=== PATIENT | male | born 1950 | race Caucasian/White ===

== ENCOUNTER 2017-08-18 09:10 | Day surgery (SDC) | payer OTHER ==
[~2017-08-18] VITALS: Ht 185.4 cm; Wt 106.6 kg
[~2017-08-18 09:10] MED LIST: MULTIVITAMINS1 EAC8 PO
--- NOTE | 2017-08-18 11:29 | NUR ---
08/18/17 1129 Pooja Macedo 1120-PATIENT ARRIVED TO PACU ON 6L MASK O2 SAT 95% PATIENT NONAROUSABLE RN HOLDING AIRWAY. RIGHT HAND DRESSING CDI. ICE APPLIED, SR HR [id number] 1125-PATIENT AROUSING TO VERBAL STIMULI OPENING EYES SHALLOW BREATHING ENCOURAGED TO TAKE DEEP BREATHES. DENIES PAIN OR NAUSEA.
[2017-08-18] MEDS ORDERED: ULTRAM50 MG PO (12:03)
--- NOTE | 2017-08-18 12:48 | OR ---
[facility] [address], [place] [address] Signed DATE OF OPERATION: 08/18/2017 SURGEON: Real Ann MD PREOPERATIVE DIAGNOSIS: Dupuytren's disease, right palm ring finger. POSTOPERATIVE DIAGNOSIS: Dupuytren's disease, right palm ring finger. PROCEDURE: Partial palmar fasciectomy. ANESTHESIA: [place] block with general. SPECIMENS AND COMPLICATIONS: There were no specimens or complications. TOURNIQUET TIME: Tourniquet time was about 59 minutes. WHAT WAS DONE: The patient was taken to the operating room. After [place] block was administered, the right upper extremity was positioned, and prepped and draped in a routine sterile fashion. A longitudinal incision was made over the palpable cord and nodules along the 4th ray from the PIP flexion crease proximally across the proximal MCP flexion crease. The skin was divided sharply and then under loupe magnification, we used a small skin hook to elevate the skin and we gently elevated the skin off the palmar fascia. We then used a pair of tenotomy scissors to carry the dissection a little deeper medially and laterally around the cord, so we could identify the neurovascular bundles. We then released the cord proximally and then elevated off the flexor tendon sheath and off the neurovascular bundles proceeding distally. Distally, we shelled it out again from the surrounding tissue paying careful attention to the neurovascular structures. Hemostasis was then achieved with electrocautery. The longitudinal incision was then converted to multiple Z-plasty and closed with 5-0 nylon. A sterile dressing was applied. He was awakened and taken to the recovery room where he arrived in stable condition. Counts were correct and antibiotic protocols were followed. Electronically Signed By: REAL ANN MD 08/18/17 1248 PATIENT NAME: SHALOM HAIRSTON OPERATIVE REPORT DATE OF : 50 REPORT #: [id number] PHYSICIAN: REAL ANN MD PCP: LAUREL ERWIN MD REPORT IS CONFIDENTIAL AND NOT TO BE RELEASED WITHOUT AUTHORIZATION [address] [address] Signed Real Ann MD WFB/MODL /[id number] Copies: ~ Electronically Signed By: REAL ANN MD 08/18/17 1248 PATIENT NAME: SHALOM HAIRSTON OPERATIVE REPORT DATE OF : 50 REPORT #: [id number] PHYSICIAN: REAL ANN MD PCP: LAUREL ERWIN MD REPORT IS CONFIDENTIAL AND NOT TO BE RELEASED WITHOUT AUTHORIZATION
== END 2017-08-18 12:40 | disposition home or self-care (01) ==
LOC: DS 09:10 → OPS 09:10 → DS 09:30 → OPS 12:40
PROVIDERS: Orthopaedic Surgery
PROC: 0JNJ0ZZ Release Right Hand Subcutaneous Tissue and Fascia, Open Approach (ICD-10-PCS; principal; 2017-08-18 09:30)
DX: M72.0 Palmar fascial fibromatosis [Dupuytren] (principal); J30.2 Other seasonal allergic rhinitis
CPT/HCPCS: 01810; J0690; J1885; J2250; J2704; J3010; J7120

== ENCOUNTER 2018-01-25 15:27 | Emergency (ER) | payer OTHER ==
[~2018-01-25] VITALS: Ht 185.4 cm; Wt 106.6 kg
--- OUTSIDE RECORDS SUMMARY | ~2018-01-25 | XMS | Clinical Summary ---
Demographics + + + | Address | [address] | | | [place] [address] | + + + | Home Phone | | + + + | Preferred Language | Unknown | + + + | Marital Status | | + + + | Moravian Affiliation | 1027 | + + + | Race | Unknown | + + + | Ethnic Group | Unknown | + + + Author + + + | Author | [facility] | | | and [place] | + + + | Organization | [facility] | | | and [place] | + + + | Address | Unknown | + + + | Phone | Unavailable | + + + Support + + +---------+ + | Name | Relationship | Address | Phone | + + +---------+ + | HELEN CHRISTIANSON/INDIRA | ECON | Unknown | Unavailable | + + +---------+ + Care Team Providers + +------+ + | Care Diamond Selector Name | Role | Phone | + +------+ + PP | Unavailable | + +------+ + Allergies Not on File Current Medications Not on file Active Problems Not on file Social History + +-------+ +--------+------+ | Tobacco Use | Types | Packs/Day | Years | Date | | | | | Used | | + +-------+ +--------+------+ | Never Assessed | | | | | + +-------+ +--------+------+ + + + | Sex Assigned at | Date Recorded | | | | + + + | Not on file | | + + + Plan of Treatment + + + + + | Health Maintenance | Due Date | Last Done | Comments | + + + + + | Vaccine: | | | | | Dtap/Tdap/Td (1 - | 0 | | | | Tdap) | | | | + + + + + | Vaccine: Zoster (1 | | | | | of 2) | 1 | | | + + + + + | Vaccine: | | | | | Pneumococcal 65+ | 6 | | | | Low/Medium Risk (1 | | | | | of 2 - PCV13) | | | | + + + + + | Vaccine: Influenza | | | | | (#1) | 8 | | | + + + + + Results Not on filefrom Last 3 Months"
--- OUTSIDE RECORDS SUMMARY | ~2018-01-25 | XMS | Clinical Summary ---
Demographics + + + | Address | [address] | | | [place] [address] | + + + | Home Phone | | + + + | Preferred Language | Unknown | + + + | Marital Status | | + + + | Evangelical Affiliation | 1027 | + + + | Race | Unknown | + + + | Ethnic Group | Unknown | + + + Author + + + | Author | [facility] | | | and [place] | + + + | Organization | [facility] | | | and [place] | [...] Team Providers + +------+ + | Care Rattan Worker Name | Role | Phone | + [...]
[~2018-01-25 15:27] MED LIST changes: +ULTRAM50 MG PO
== END 2018-01-25 17:52 | disposition short-term general hospital (02) ==
LOC: ED 15:27
PROC: 3E0T3BZ Introduction of Anesthetic Agent into Peripheral Nerves and Plexi, Percutaneous Approach (ICD-10-PCS; principal; 2018-01-25)
DX: S62.611B Displaced fracture of proximal phalanx of left index finger, initial encounter for open fracture (principal); S61.213A Laceration without foreign body of left middle finger without damage to nail, initial encounter; W31.89XA Contact with other specified machinery, initial encounter
CPT/HCPCS: 64450; 73130; 80053; 85025; 85610; 90471; 90715; 96374; 96375; 99284; J0690; J1170; J2405; J7030